=== PATIENT | male | born 1990 ===

== ENCOUNTER 2018-08-08 08:30 | Inpatient (IN) | payer OTHER ==
[~2018-08-08] VITALS: Ht 175.3 cm; Wt 74.8 kg
[2018-08-09] MEDS ORDERED: PERCOCET 5-3251 EACH PO (10:29)
== END 2018-08-09 11:09 | disposition home or self-care (01) | DRG 343 ==
LOC: ER 08:30 → SEC-K 14:00 → SURH 16:35
PROVIDERS: ADMIT Surgery
PROC: BW21Y0Z Computerized Tomography (CT Scan) of Abdomen and Pelvis using Other Contrast, Unenhanced and Enhanced (ICD-10-PCS; 2018-08-08)
PROC: 0DTJ4ZZ Resection of Appendix, Percutaneous Endoscopic Approach (ICD-10-PCS; principal; 2018-08-08 15:00)
DX: K35.890 Other acute appendicitis without perforation or gangrene (principal); R10.31 Right lower quadrant pain; N20.0 Calculus of kidney